=== PATIENT | male | born 1955 | race Caucasian/White ===

== ENCOUNTER → 2017-12-03 | Outpatient (CLI) | payer SELFPAY ==
[~2017-12-03] MED LIST: BUSP10 PO; CITA20; CITA20 PO; Clonazepam0.5 MG PO; HYDCHL25 PO; Klonopin0.5 MG PO; LISI20 PO; METO25ER PO; OLME20-12.; PRAV20 PO
== END | disposition home or self-care (01) ==
LOC: PLD 08:15 → LAB SHORT 08:15
DX: L57.0 Actinic keratosis (principal)
CPT/HCPCS: 88305

== ENCOUNTER 2019-01-06 03:03 | Day surgery (SDC) | payer OTHER ==
[~2019-01-06] VITALS: Ht 180.3 cm; Wt 112.8 kg
[2019-01-06] MEDS ORDERED: SERT100 PO (06:33)
[2019-01-06] MEDS ORDERED: TRAZ100 PO (06:36)
[2019-01-06] MEDS ORDERED: Abilify2 MG PO (06:36)
--- NOTE | 2019-01-06 14:07 | NUR ---
VSS. R CW DRESSING D&I; NO SWELLING NOTED. VSS. TOLERATING PO. APAP ADMIN PER NEW ORDER FOR C/O DISCOMFORT AT PACER SITE. VOIDING. UP TO AMBULATE IN [place]. CONT TO MONITOR.
--- NOTE | 2019-01-06 17:39 | NUR ---
SHIFT SUMMARY DR DONG IN TO SEE PATIENT LATE THIS AFTERNOON; NO NEW ORDERS. PATIENT REPORTS MORE COMFORTABLE AFTER APAP AND ICE PACK. PACER SITE DRESSING CDI; NO SWELLING. TOLERATING PO. NO C/O. VSS. FAMILY IN TO SEE. VOIDING. PAS IN PLACE. CALL LIGHT IN REACH. CONT TO MONITOR.
--- NOTE | 2019-01-07 06:23 | NUR ---
PT TO XRAY
--- NOTE | 2019-01-07 06:46 | NUR ---
SHIFT SUMMARY PT IS POD 1 PACEMAKER PLACEMENT. PT HAS HAD VERY MILD LEFT CHEST WALL PAIN, TYLENOL FOR PAIN AND ICE PRN. CHEST XRAY THIS AM. LEFT ARM IN SLING TO REMIND HIM NOT TO LIFT IT. PT IS SBA, WALKS W/O ISSUE. A&O, MAKES NEEDS KNOWN. WILL CTM UNTIL PASS TO NEXT SHIFT.
--- NOTE | 2019-01-07 10:18 | NUR ---
DISCHARGED DC INSTRUCTIONS REVIEWED WITH PATIENT AND PATIENT DENIES ANY QUESTIONS. DISCHARGED TO HOME WITH FAMILY
== END 2019-01-07 10:17 | disposition home or self-care (01) ==
LOC: MHTC 03:03 → SURS 09:52 → MHTC 10:24 → SURS 10:24 → MHTC 01-07 10:17
PROC: 0JH606Z Insertion of Pacemaker, Dual Chamber into Chest Subcutaneous Tissue and Fascia, Open Approach (ICD-10-PCS; principal; 2019-01-06)
PROC: 02H63JZ Insertion of Pacemaker Lead into Right Atrium, Percutaneous Approach (ICD-10-PCS; 2019-01-06)
PROC: 02HK3JZ Insertion of Pacemaker Lead into Right Ventricle, Percutaneous Approach (ICD-10-PCS; 2019-01-06)
DX: I49.5 Sick sinus syndrome (principal); E78.5 Hyperlipidemia, unspecified; I10 Essential (primary) hypertension; J30.9 Allergic rhinitis, unspecified; F41.0 Panic disorder [episodic paroxysmal anxiety]; F32.9 Major depressive disorder, single episode, unspecified; Z79.899 Other long term (current) drug therapy; I45.10 Unspecified right bundle-branch block; I35.1 Nonrheumatic aortic (valve) insufficiency; I37.1 Nonrheumatic pulmonary valve insufficiency
CPT/HCPCS: 33208; 71045; 71046; 76937; 99152; 99153; C1785; C1898; J0690; J1644; J2250; J3010; J7030; J7040

== ENCOUNTER → 2021-06-19 | Outpatient (CLI) | payer OTHER ==
[~2021-06-19] MED LIST changes: +Abilify2 MG PO; +SERT100 PO; +TRAZ100 PO
== END | disposition home or self-care (01) ==
LOC: LAB SHORT 12:43 → LAB 12:43
DX: D48.5 Neoplasm of uncertain behavior of skin (principal); L57.0 Actinic keratosis
CPT/HCPCS: 88305

== ENCOUNTER 2022-09-23 05:46 | Day surgery (SDC) | payer OTHER ==
[~2022-09-23] VITALS: Ht 180.3 cm; Wt 113.5 kg
[~2022-09-23 05:46] MED LIST changes: +Buspirone HCl15 MG PO; +Inderal40 MG PO
--- NOTE | 2022-09-23 06:36 | NUR ---
Ambulatory in [facility] warming gown applied. Surgical site prepped with 2% Chlorhexidine cloth wipe. History, Chart, Medications and Allergies reviewed before start of procedure.Lungs clear T/O to Auscultation. Patient confirms NPO status and agrees with scheduled surgery. Surgical site prepped with 2% Chlorhexidine cloth wipe. Pre-Op teaching done. Pt verbalizes understanding. Patient States Post-Procedure ride home has been arranged. Patient reports completing Chlorhexadine shower X2 prior to admission to hospital.
--- NOTE | 2022-09-23 16:12 | NUR ---
SHIFT SUMMARY S/P L TKA PT [id number], HAS BEEN UP AND AMBULATING WITH FWW AND GB. TOLERATING PO WELL. PAIN CONTROLLED PER EMAR. OSIEL ARENAS. PT WORKED WITH THERAPY X1. PLAN IS FOR HER TO WORK WITH THERAPY TOMORROW AND DISCHARGE. SPOUSE PICKED UP PRESCRIPTIONS TODAY.
--- NOTE | 2022-09-24 05:09 | NUR ---
SHIFT SUMMARY PT POD 0 LEFT TOTAL KNEE, HE HAS DONE WELL OVERNIGHT. PAIN HAS BEEN MINIMAL AND WELL CONTROLLED PER EMAR. PT HAS BEEN UP AND AMBULATING AND HAS BEEN VOIDING. TOLERATING PO INTAKE. PT DENIES N/T IN FEET AND IS ABLE TO WIGGLE TOES. POST OP VITALS STABLE. BED IN LOWEST POSITION, CALL LIGHT WITHIN REACH.
[2022-09-24 05:35] LABS: BASOPHILS ABSOLUTE AUTO 0.02 K/mm3 (0.00-0.23); BASOPHILS PERCENT AUTO 0 % (0-2); EOSINOPHILS ABSOLUTE AUTO 0.01 K/mm3 (0.00-0.68); EOSINOPHILS PERCENT AUTO 0 % (0-6); Hematocrit 40.8 % (37.0-53.0); Hemoglobin 13.8 g/dL (13.5-17.5); IMMATURE GRAN ABSOLUTE AUTO 0.07 K/mm3 (0.00-0.10); IMMATURE GRAN PERCENT AUTO 1 % (0-1); LYMPHOCYTES ABSOLUTE AUTO 1.03 K/mm3 (0.84-5.20); LYMPHOCYTES PERCENT AUTO 7 % (21-46); MONOCYTES ABSOLUTE AUTO 1.21 K/mm3 (0.16-1.47); MONOCYTES PERCENT AUTO 8 % (4-13); Mean Corpuscular HGB Conc 33.8 g/dL (31.5-36.5); Mean Corpuscular Volume 89 fL (80-100); Mean Platelet Volume 9.8 fL (9.1-12.4); NEUTROPHILS ABSOLUTE AUTO 13.11 K/mm3 (1.96-9.15); NEUTROPHILS PERCENT AUTO 85 % (41-73); Platelet Count 240 K/mm3 (150-400); RDW Coefficient Variation 12.4 % (11.7-14.2); RDW Standard Deviation 40.5 fL (35.1-46.3); White Blood Cell Count 15.45 K/mm3 (4.00-11.30)
[2022-09-24 05:54] LABS: Bun/Creatinine Ratio 25.2 (12.0-20.0); Calcium, Blood 8.5 mg/dL (8.5-10.1); Creatinine, Blood 0.99 mg/dL (0.60-1.20); Potassium, Blood 4.1 mmol/L (3.5-5.5)
[2022-09-24] MEDS ORDERED: Percocet 5-3251 EACH PO (09:20)
[2022-09-24] MEDS ORDERED: ASPI81CH PO (09:20)
== END 2022-09-24 10:11 | disposition home or self-care (01) ==
LOC: ORSCMMR 05:46 → ORD 07:30 → ORSCMMR 07:30 → SURS 10:01 → ORSCMMR 09-24 10:11
PROVIDERS: Orthopaedic Surgery
PROC: 0SRD0JA Replacement of Left Knee Joint with Synthetic Substitute, Uncemented, Open Approach (ICD-10-PCS; principal; 2022-09-23 07:30)
DX: M17.12 Unilateral primary osteoarthritis, left knee (principal); G47.33 Obstructive sleep apnea (adult) (pediatric); I10 Essential (primary) hypertension; Z95.0 Presence of cardiac pacemaker; E78.5 Hyperlipidemia, unspecified; Z79.899 Other long term (current) drug therapy; F41.8 Other specified anxiety disorders; E66.9 Obesity, unspecified; Z68.34 Body mass index [BMI] 34.0-34.9, adult
CPT/HCPCS: 36415; 73560-LT; 80048; 85025; 97110; 97116; 97161; A9270; C1776; J0171; J0690; J0735; J1100; J1885; J2250; J2370; J2405; J2704; J2795; J3010; J7120

== ENCOUNTER 2023-01-08 09:09 | Day surgery (SDC) | payer OTHER ==
[~2023-01-08] VITALS: Ht 180.3 cm; Wt 115.2 kg
[~2023-01-08 09:09] MED LIST changes: +ASPI81CH PO; +Percocet 5-3251 EACH PO
[2023-01-08] MEDS ORDERED: HYDHCL25 PO (09:26)
[2023-01-08 10:34] VITALS: BP 127/75
== END 2023-01-08 10:46 | disposition home or self-care (01) ==
LOC: ORSCSDS 09:09
PROVIDERS: Ophthalmology
PROC: 08DJ3ZZ Extraction of Right Lens, Percutaneous Approach (ICD-10-PCS; principal; 2023-01-08 10:30)
DX: H25.11 Age-related nuclear cataract, right eye (principal); Z95.0 Presence of cardiac pacemaker; F41.9 Anxiety disorder, unspecified; E78.5 Hyperlipidemia, unspecified; F32.A Depression, unspecified; G47.33 Obstructive sleep apnea (adult) (pediatric); I10 Essential (primary) hypertension; I45.10 Unspecified right bundle-branch block; Z86.16 Personal history of COVID-19; E66.9 Obesity, unspecified; Z68.35 Body mass index [BMI] 35.0-35.9, adult; Z79.899 Other long term (current) drug therapy
CPT/HCPCS: J2001; J3300; J3301; J7040; V2632

== ENCOUNTER 2023-01-15 09:11 | Day surgery (SDC) | payer OTHER ==
[~2023-01-15] VITALS: Ht 180.3 cm; Wt 116.2 kg
[~2023-01-15 09:11] MED LIST changes: +HYDHCL25 PO
[2023-01-15 10:50] VITALS: BP 143/86
--- NOTE | 2023-01-15 11:08 | NUR ---
01/15/23 1108 Presley Rodriguez IV REMOVED INTACT. SITE WNL.
== END 2023-01-15 11:05 | disposition home or self-care (01) ==
LOC: ORSCSDS 09:11
PROVIDERS: Ophthalmology
PROC: 08DK3ZZ Extraction of Left Lens, Percutaneous Approach (ICD-10-PCS; principal; 2023-01-15 10:30)
DX: H25.12 Age-related nuclear cataract, left eye (principal); Z96.1 Presence of intraocular lens; G47.33 Obstructive sleep apnea (adult) (pediatric); I10 Essential (primary) hypertension; F41.9 Anxiety disorder, unspecified; F32.A Depression, unspecified; E78.5 Hyperlipidemia, unspecified; Z86.16 Personal history of COVID-19; Z95.0 Presence of cardiac pacemaker; E66.9 Obesity, unspecified; Z68.35 Body mass index [BMI] 35.0-35.9, adult; Z79.899 Other long term (current) drug therapy
CPT/HCPCS: J2001; J2250; J3010; J3301; J7040; V2632

== ENCOUNTER 2023-04-29 12:00 | Day surgery (SDC) | payer OTHER ==
[~2023-04-29] VITALS: Ht 180.3 cm; Wt 115.3 kg
[2023-04-29 14:02] VITALS: BP 128/85
== END 2023-04-29 14:18 | disposition home or self-care (01) ==
LOC: ORSCSDS 12:00
PROVIDERS: Internal Medicine Gastroenterology
PROC: 0DBM8ZX Excision of Descending Colon, Via Natural or Artificial Opening Endoscopic, Diagnostic (ICD-10-PCS; principal; 2023-04-29 13:45)
PROC: 0DBL8ZX Excision of Transverse Colon, Via Natural or Artificial Opening Endoscopic, Diagnostic (ICD-10-PCS; principal; 2023-04-29 13:45)
DX: Z12.11 Encounter for screening for malignant neoplasm of colon (principal); Z86.010 Personal history of colon polyps; D12.3 Benign neoplasm of transverse colon; D12.4 Benign neoplasm of descending colon; K57.30 Diverticulosis of large intestine without perforation or abscess without bleeding; I10 Essential (primary) hypertension; E66.9 Obesity, unspecified; Z68.36 Body mass index [BMI] 36.0-36.9, adult; G47.33 Obstructive sleep apnea (adult) (pediatric); Z95.0 Presence of cardiac pacemaker; Z79.899 Other long term (current) drug therapy; F41.8 Other specified anxiety disorders; E78.00 Pure hypercholesterolemia, unspecified
CPT/HCPCS: 88305; J2704; J7120

== ENCOUNTER 2024-10-07 15:07 | Emergency (ER) | payer OTHER ==
[~2024-10-07] VITALS: Ht 180.3 cm; Wt 108.9 kg
[2024-10-07 15:49] LABS: BASOPHILS ABSOLUTE AUTO 0.06 K/mm3 (0.00-0.23); BASOPHILS PERCENT AUTO 1 % (0-2); EOSINOPHILS ABSOLUTE AUTO 0.14 K/mm3 (0.00-0.68); EOSINOPHILS PERCENT AUTO 2 % (0-6); Hemoglobin 16.1 g/dL (13.5-17.5); IMMATURE GRAN ABSOLUTE AUTO 0.04 K/mm3 (0.00-0.10); IMMATURE GRAN PERCENT AUTO 1 % (0-1); LYMPHOCYTES PERCENT AUTO 22 % (21-46); MONOCYTES ABSOLUTE AUTO 0.69 K/mm3 (0.16-1.47); MONOCYTES PERCENT AUTO 8 % (4-13); Mean Corpuscular HGB 29.5 pg (26.0-34.0); Mean Corpuscular Volume 84 fL (80-100); Mean Platelet Volume 9.7 fL (9.1-12.4); NEUTROPHILS ABSOLUTE AUTO 5.48 K/mm3 (1.96-9.15); NEUTROPHILS PERCENT AUTO 67 % (41-73); Platelet Count 226 K/mm3 (150-400); RDW Coefficient Variation 12.5 % (11.7-14.2); RDW Standard Deviation 37.5 fL (35.1-46.3); Red Blood Cell Count 5.46 M/mm3 (4.30-5.90); White Blood Cell Count 8.21 K/mm3 (4.00-11.30)
[2024-10-07 16:37] LABS: Albumin, Blood 3.5 g/dL (3.4-5.0); Albumin/Globulin Ratio 0.7 (0.8-1.8); Bilirubin, Total 0.9 mg/dL (0.1-1.0); Bun/Creatinine Ratio 21.6 (12.0-20.0); Calcium, Blood 9.2 mg/dL (8.5-10.1); Creatinine, Blood 0.79 mg/dL (0.60-1.20); Globulin, Blood 4.7 g/dL (2.2-4.0); Potassium, Blood 4.6 mmol/L (3.5-5.5); Total Protein, Blood 8.2 g/dL (6.4-8.2)
[2024-10-07] MEDS ORDERED: MECL25 PO (17:33)
[2024-10-07 17:51] VITALS: BP 136/85
== END 2024-10-07 17:49 | disposition home or self-care (01) ==
LOC: ER 15:07
PROVIDERS: Emergency Medicine
DX: R42 Dizziness and giddiness (principal); I10 Essential (primary) hypertension; E78.5 Hyperlipidemia, unspecified; Z79.899 Other long term (current) drug therapy
CPT/HCPCS: 73090; 80053; 85025; 93005; 93010; 99284-25